=== PATIENT | male | born 1990 | race Caucasian/White ===

== ENCOUNTER 2018-02-16 08:58 | Emergency (ER) | payer SELFPAY ==
[2018-02-16] MEDS ORDERED: Diph,Pert(Acell),Tet Vac 0.5 ML SYR IM ONE (09:15)
[2018-02-16] MEDS ORDERED: CEPHALEXIN 500 MG CAPSULE PO STA (09:15)
[2018-02-16] MEDS ORDERED: IBUPROFEN 600 MG TABLET PO ONE (09:24)
--- NOTE | 2018-02-16 09:28 | Emergency Department Record ---
History of Present Illness - General Chief Complaint: Laceration(s) Stated Complaint: RIGHT HAND INJURY Time Seen by Provider: 02/16/18 09:12 Source: Patient Mode of Arrival: Ambulatory Limitations: No limitations - History of Present Illness Initial Commments: The patient is here due to injuring his R hand at work a half hour ago. He had leather gloves on and cut the dorsal hand with a grinding wheel. He states it bled a lot and is quite painful. His Td is not UTD and he is having pain with ROM of his 3rd finger. Onset/Timin -: Minutes(s) Location: Other Place: Work Context: Accidental Associated Symptoms: Loss of feeling/numbness, Pain Treatments Prior to Arrival: Bandage - Max Coma Scale Eye Response: (4) Open spontaneously Motor Response: (6) Obeys commands Verbal Response: (5) Oriented Max Total: 15 - Related Data Hx Tetanus Toxoid Vaccination: Yes Year of Tetanus Vaccination: 2012 Patient Tetanus UTD (within 5 yrs): Yes Previous Rx's Medication Instructions Recorded Cephalexin [Keflex] 500 mg PO QID #28 cap 02/16/18 Tramadol HCl 50 mg PO Q8H #15 tab 02/16/18 Allergies Allergy/AdvReac Type Severity Reaction Status Date / Time hydromorphone [From Dilaudid] AdvReac PT UNSURE Verified 02/16/18 10:32 OF REACTION Travel Screening - Travel/Exposure Within Last 30 Days Have you traveled within the last 30 days?: No - Travel/Exposure Within Last Year Have you traveled outside the [place] in the last year?: No - Additonal Travel Details Have you been exposed to anyone with a communicable illness?: No - Travel Symptoms Symptom Screening: None Review of Systems Constitutional: Denies: Chills, Fever Past Medical History - SOCIAL HISTORY Smoking Status: Current every day smoker Alcohol Use: Occasional Drug Use: Occasional Drug Use Detail:: Marijuana - RESPIRATORY Hx Respiratory Disorders: No - CARDIOVASCULAR Hx Cardio Disorders: No - NEURO Hx Neuro Disorders: Yes Hx Seizures: Yes (history of (age [age])) - GI Hx GI Disorders: No - Hx Genitourinary Disorders: No - ENDOCRINE Hx Endocrine Disorders: No Hx Diabetes: No Hx Thyroid Disease: No - MUSCULOSKELETAL Hx Musculoskeletal Disorders: No - PSYCH Hx Psych Problems: Yes Comment:: Bipolar and ADD - HEMATOLOGY/ONCOLOGY Hx Hematology/Oncology Disorders: No Family Medical History Any Significant Family History?: Yes Hx Cancer: Father Hx Heart Disease: Brother/Sister, Grandparents Hx HTN: Mother, Brother/Sister Physical Exam - General General Appearance: Alert, Oriented x3, Cooperative, No acute distress - Head Head exam: Atraumatic, Normocephalic - Eye Eye exam: Normal appearance, PERRL - Extremities Extremities exam: negative: Normal inspection (There is a 2 cm lac to the distal R hand between the 2nd and 3rd MC bones. 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 The R 2nd and 3rd finger areas are NVI to light touch.) Image of Hand: 1 - 2 cm lac. Course Vital Signs 02/16/18 09:03 Temperature 98 F Pulse Rate 74 Respiratory 20 Rate Blood Pressure 138/82 Pulse Ox 98 - Reevaluation(s) Reevaluation #1: Procedure note: The R hand lac was anesth. with 3 cc's Lido 1% with Epi. The wound was debrided and lavaged copiously with sterile saline. There was significant tattooing of dirt deep in the wound and also along the wound margins. The wound margin dirt was debrided. There was no definite tendon lac visualized but the exam was very difficult due to arterial bleeding in the wound. The lac was then closed with 5 4.0 nylon sutures. There were no complications. 02/16/18 10:16 Reevaluation #2: I did contact Dr. Britt and he will see the patient in the office today at 1: 00 pm. He will probably take him to surgery due to the deep wound contamination. 02/16/18 10:28 02/16/18 11:24 Medical Decision Making - Data Complexity MDM Data: X-Ray Ordered and/or Reviewed - Radiology Data Radiology results: Report reviewed (R hand: Neg for fx. Prob metallic tiny punctate FB's in wound.) Disposition Disposition: Discharge Clinical Impression: Laceration of hand Qualifiers: Encounter type: initial encounter Foreign body presence: unspecified Laterality : right Qualified Code(s): S61.411A - Laceration without foreign body of right hand, initial encounter Disposition: Home, Self-Care Condition: (2) Stable Instructions: Laceration (ED) Additional Instructions: Please see Dr. Britt in the office today at 1:00 pm in [place] for further evaluation. Please take the Keflex and Tramadol as directed. The address [id number] [place] [address], [address]. Prescriptions: Cephalexin [Keflex] 500 mg PO QID #28 cap Tramadol HCl 50 mg PO Q8H #15 tab Referrals: JESSICA BRITT M.D. [MEDICAL DOCTOR] - Forms: Patient Portal Access Time of Disposition: 10:31 Quality - Quality Measures Quality Measures: N/A - Blood Pressure Screening View Details: Yes Does Patient Have Any of the Following: No Blood Pressure Classification: Pre-Hypertensive BP Reading Systolic Measurement: 138 Diastolic Measurement: 82 Screening for High Blood Pressure: < Pre-Hypertensive BP, F/U Documented > [ [id number]] Pre-Hypertensive Follow-up Interventions: Referral to alternative/primary care provider.
[2018-02-16 10:55] LABS: AMPHETAMINE SCREEN URINE NOT DETECTED; BARBITURATE SCREEN URINE NOT DETECTED; BENZODIAZEPINE SCREEN URINE NOT DETECTED; COCAINE SCREEN URINE NOT DETECTED; METHADONE SCREEN URINE NOT DETECTED; METHAMPHETAMINE SCREEN NOT DETECTED; OPIATE SCREEN URINE NOT DETECTED; OXYCODONE SCREEN URINE NOT DETECTED; PHENCYCLIDINE SCREEN URINE NOT DETECTED; PROPOXYPHENE SCREEN URINE NOT DETECTED; THC SCREEN URINE DETECTED; TRICYCLIC ANTIDEPRESSANT SCRN NOT DETECTED
--- NOTE | 2018-02-19 07:48 | RADIOLOGY REPORT ---
EXAM: RIGHT HAND HISTORY: INJURY TO POSTERIOR HAND BY A SAW WITH LACERATION. TECHNIQUE: Three views of the right hand were obtained. Comparison: None. Encounter: Initial. FINDINGS: Particularly on the lateral view there is soft tissue deformity with some apparent soft tissue defect along the dorsal aspect of the hand presumably related to the history of a saw laceration in this region. Along the distal aspect of this apparent soft tissue defect there are several tiny metallic like densities which are presumably foreign bodies related to the acute saw injury and clinical correlation is suggested. No definite fracture or dislocation of the right hand identified. There is a faint linear calcific like density in the soft tissues along the anterior aspect of the hand projecting between the shafts of the second and third metacarpal on the AP view. This may be unrelated to the acute injury although clinical correlation as to any soft tissue injury in this region as well suggested. IMPRESSION: 1. SOFT TISSUE DEFECT ALONG THE DORSAL ASPECT OF THE HAND CONSISTENT WITH THE HISTORY OF SAW LACERATION IN THIS REGION. SOME TINY METALLIC DENSITIES IN THE SOFT TISSUES ALONG THE DORSUM OF THE HAND JUST DISTAL TO THE APPARENT LACERATION SITE. 2. THERE IS A TINY FAINT CALCIFIC LIKE DENSITY IN THE SOFT TISSUES ALONG THE ANTERIOR ASPECT OF THE HAND AT ABOUT THE LEVEL OF THE SPACE BETWEEN THE SECOND AND THIRD METACARPAL ON THE AP VIEW WHICH MAY BE UNRELATED TO THE ACUTE INJURY ALTHOUGH CLINICAL CORRELATION IS SUGGESTED. 3. NO DEFINITE ACUTE FRACTURE OR DISLOCATION EVIDENT. JOB NUMBER: [id number] MTDD
== END 2018-02-16 10:39 | disposition home or self-care (01) ==
LOC: ER 08:58
DX: S61.412A Laceration without foreign body of left hand, initial encounter (principal); R20.0 Anesthesia of skin; W31.89XA Contact with other specified machinery, initial encounter; F17.210 Nicotine dependence, cigarettes, uncomplicated; Y93.63 Activity, rugby; Y99.0 Civilian activity done for income or pay
CPT/HCPCS: 12041; 80305; 90715; 96372; 99283; 99284

== ENCOUNTER 2018-03-12 09:44 | Emergency (ER) | payer OTHER ==
[2018-03-12] MEDS ORDERED: IBUPROFEN 400 MG TABLET PO ONE (09:57)
--- NOTE | 2018-03-12 09:58 | Emergency Department Record ---
History of Present Illness - General Chief complaint: Extremity Problem Stated complaint: LEFT HAND INJURY Time Seen by Provider: 03/12/18 09:51 Source: Patient Mode of Arrival: Ambulatory - History of Present Illness Initial comments: The patient was at work using heavy machinery when his dominant left hand was crushed in a heavy machine. HE tried pulling it out quickly, but injured his index and middle fingers mainly. This occurred around 0931 this morning. He denies other injury or prior injury to that hand. MD Complaint: Extremity pain Onset/Timin -: Minutes(s) Location: Left, Hand History of Same: No Radiation: Distal Severity scale (1-10): 10 Quality: Aching Consistency: Constant Improves with: Nothing Worsens with: Other Associated Symptoms: Denies other symptoms - Related Data Previous Rx's Medication Instructions Recorded Ibuprofen [Motrin] 800 mg PO Q8H #21 tab 03/12/18 Allergies Allergy/AdvReac Type Severity Reaction Status Date / Time hydromorphone [From Dilaudid] AdvReac PT UNSURE Verified 03/12/18 09:51 OF REACTION Travel Screening - Travel/Exposure Within Last 30 Days Have you traveled within the last 30 days?: No Review of Systems Reviewed: No additional complaints except as noted below Constitutional: Reports: As per HPI. Denies: Chills, Fever, Malaise, Night sweats, Weakness, Weight change Eyes: Reports: As per HPI. Denies: Eye discharge, Eye pain, Photophobia, Vision change ENT: Reports: As per HPI. Denies: Congestion, Dental pain, Ear pain, Epistaxis , Hearing loss, Throat pain Respiratory: Reports: As per HPI. Denies: Cough, Dyspnea, Hemoptysis, Stridor, Wheezes Cardiovascular: Reports: As per HPI. Denies: Arrhythmia, Chest pain, Dyspnea on exertion, Edema, Murmurs, Orthopnea, Palpitations, Paroxysmal nocturnal dyspnea, Rheumatic Fever, Syncope Endocrine: Reports: As per HPI. Denies: Fatigue, Heat or cold intolerance, Polydipsia, Polyuria Gastrointestinal: Reports: As per HPI. Denies: Abdominal pain, Constipation, Diarrhea, Hematemesis, Hematochezia, Melena, Nausea, Vomiting Genitourinary: Reports: As per HPI. Denies: Dysuria, Frequency, Hematuria, Incontinence, Retention, Testicular pain, Testicular mass, Urgency Musculoskeletal: Reports: As per HPI. Denies: Arthralgia, Back pain, Gout, Joint swelling, Myalgia, Neck pain Skin: Reports: As per HPI. Denies: Bruising, Change in color, Change in hair/ nails, Lesions, Pruritus, Rash Neurological: Reports: As per HPI. Denies: Abnormal gait, Confusion, Headache, Numbness, Paresthesias, Seizure, Tingling, Tremors, Vertigo, Weakness Psychiatric: Reports: As per HPI. Denies: Anxiety, Auditory hallucinations, Depression, Homicidal thoughts, Suicidal thoughts, Visual hallucinations Hematological/Lymphatic: Reports: As per HPI. Denies: Anemia, Blood Clots, Easy bleeding, Easy bruising, Swollen glands Past Medical History - SOCIAL HISTORY Smoking Status: Current every day smoker Drug Use: Occasional Drug Use Detail:: Marijuana - RESPIRATORY Hx Respiratory Disorders: No - CARDIOVASCULAR Hx Cardio Disorders: No - NEURO Hx Neuro Disorders: Yes Hx Seizures: Yes (history of (age [age])) - GI Hx GI Disorders: No - Hx Genitourinary Disorders: No - ENDOCRINE Hx Endocrine Disorders: No Hx Diabetes: No Hx Thyroid Disease: No - MUSCULOSKELETAL Hx Musculoskeletal Disorders: No - PSYCH Hx Psych Problems: Yes Comment:: Bipolar and ADD - HEMATOLOGY/ONCOLOGY Hx Hematology/Oncology Disorders: No Family Medical History Hx Cancer: Father Hx Heart Disease: Brother/Sister, Grandparents Hx HTN: Mother, Brother/Sister Physical Exam - General General Appearance: Alert, Oriented x3, Cooperative, Moderate distress - Head Head exam: Normal inspection - Eye Eye exam: Normal appearance, PERRL Pupils: Normal accommodation - ENT ENT exam: Normal exam, Mucous membranes moist, Normal external ear exam, Normal orophraynx, TM's normal bilaterally Ear exam: Normal external inspection. negative: External canal tenderness Nasal Exam: Normal inspection. negative: Discharge, Sinus tenderness Mouth exam: Normal external inspection, Tongue normal Teeth exam: Normal inspection. negative: Dental caries Throat exam: Normal inspection. negative: Tonsillar erythema, Tonsillar exudate - Neck Neck exam: Normal inspection, Full ROM. negative: Tenderness - Respiratory Respiratory exam: Normal lung sounds bilaterally. negative: Respiratory distress - Cardiovascular Cardiovascular Exam: Regular rate, Normal rhythm, Normal heart sounds - GI/Abdominal GI/Abdominal exam: Soft. negative: Distended, Tenderness - Rectal Rectal exam: Deferred - exam: Deferred - Extremities Extremities exam: Normal inspection, Full ROM, Normal capillary refill, Tenderness (left hand tender over index and middle fingers at PIP and DIP's mainly. Skin intact, swelling at digits. Unable to move due to pain. Hand, writ , andf elbow nontender. Sensation and cap refill intact to fingertips.). negative: Calf tenderness, Pedal edema - Back Back exam: Reports: Normal inspection, Full ROM. Denies: Muscle spasm, Rash noted, Tenderness - Neurological Neurological exam: Alert, Normal gait, Oriented X3, Reflexes normal - Psychiatric Psychiatric exam: Normal affect, Normal mood - Skin Skin exam: Dry, Intact, Normal color, Warm Course Vital Signs 03/12/18 09:47 Temperature 97.8 F Pulse Rate 68 Respiratory 18 Rate Blood Pressure 129/72 Pulse Ox 100 - Reevaluation(s) Reevaluation #1: 03/12/18 10:51 Xray results, plan of care and follow up discussed with patient. All questions answered. Work restriction given. Medical Decision Making - Data Complexity MDM Data: X-Ray Ordered and/or Reviewed (Xray Left Hand: Negative for fracture. STS noted. Per radiologist.) Disposition Disposition: Discharge Clinical Impression: Hand crush injury Qualifiers: Encounter type: initial encounter Laterality: left Qualified Code(s): S67.22XA - Crushing injury of left hand, initial encounter Disposition: Home, Self-Care Return To Work/School Note Provided: Yes Condition: (1) Good Instructions: Crush Injury (ED), Hand Sprain (ED) Additional Instructions: Ice, elevate above heart. Splint hand for protection and comfort. Work restriction: no use of left hand for 1 week. Ibuprofen 800 mg every 8 hours as directed and take with food. Follow up with your PCP in the office 5-7 days. Prescriptions: Ibuprofen [Motrin] 800 mg PO Q8H #21 tab Forms: Patient Portal Access Quality - Quality Measures Quality Measures: N/A - Blood Pressure Screening Does Patient Have Any of the Following: No Blood Pressure Classification: Pre-Hypertensive BP Reading Systolic Measurement: 129 Diastolic Measurement: 72 Screening for High Blood Pressure: < Normal BP, F/U Not Required > [G8782]
[2018-03-12 11:55] LABS: AMPHETAMINE SCREEN URINE NOT DETECTED; BARBITURATE SCREEN URINE NOT DETECTED; BENZODIAZEPINE SCREEN URINE NOT DETECTED; COCAINE SCREEN URINE NOT DETECTED; METHADONE SCREEN URINE NOT DETECTED; METHAMPHETAMINE SCREEN NOT DETECTED; OPIATE SCREEN URINE NOT DETECTED; OXYCODONE SCREEN URINE NOT DETECTED; PHENCYCLIDINE SCREEN URINE NOT DETECTED; PROPOXYPHENE SCREEN URINE NOT DETECTED; THC SCREEN URINE DETECTED; TRICYCLIC ANTIDEPRESSANT SCRN NOT DETECTED
--- NOTE | 2018-03-13 17:31 | RADIOLOGY REPORT ---
EXAM: HAND, LEFT 3 VIEWS HISTORY: CRUSH INJURY, LEFT HAND, UNABLE TO FLATTEN HAND FOR IMAGING. TECHNIQUE: Four views, left hand. COMPARISON: No prior left hand series. ENCOUNTER: Initial. FINDINGS: Prominent soft tissue swelling is seen particularly involving the index finger but also the third finger. Soft tissue swelling continues overlying the region of the MCP joints. No definite acute fracture or dislocation of the left hand identified. IMPRESSION: 1. SOME SOFT TISSUE SWELLING PARTICULARLY INVOLVING THE SECOND AND THIRD FINGERS. 2. NO DEFINITE ACUTE FRACTURE OF THE LEFT HAND IDENTIFIED. JOB NUMBER: [id number] MTDD
== END 2018-03-12 11:09 | disposition home or self-care (01) ==
LOC: ER 09:44
DX: S67.193A Crushing injury of left middle finger, initial encounter (principal); S67.22XA Crushing injury of left hand, initial encounter; S67.191A Crushing injury of left index finger, initial encounter; W22.8XXA Striking against or struck by other objects, initial encounter; Y92.63 Factory as the place of occurrence of the external cause; Y99.0 Civilian activity done for income or pay; F17.210 Nicotine dependence, cigarettes, uncomplicated
CPT/HCPCS: 80305; 99283; 99284